=== PATIENT | female | born 1975 | race Caucasian/White ===

== ENCOUNTER → 2020-01-20 | Outpatient (REF) | payer OTHER | LOC: M SFHCWAGY 17:28 | PROVIDERS: ATTEND Advanced Practice Midwife | DX: Z12.4 Encounter for screening for malignant neoplasm of cervix (principal); Z01.419 Encounter for gynecological examination (general) (routine) without abnormal findings ==

== ENCOUNTER 2020-06-20 18:58 | Emergency (ER) | payer OTHER ==
[~2020-06-20] VITALS: Ht 170.2 cm; Wt 113.6 kg
[2020-06-20] MEDS ORDERED: LISI20TA35 PO ×2 (19:23→21:04)
[2020-06-20] MEDS ORDERED: TRAZ-252 PO (19:23)
[2020-06-20] MEDS ORDERED: OMEP-218 PO ×2 (19:23→21:04)
[2020-06-20] MEDS ORDERED: VITA50005 PO (19:23)
[2020-06-20] MEDS ORDERED: FERR325T18 PO (19:23)
[2020-06-20] MEDS ORDERED: DEBL1TAB PO (19:23)
[2020-06-20] MEDS ORDERED: GI COCKTAIL 50ML BTL(HYOSCYAMINE/MAALOX/LIDOCAINE VISCOUS)(1:3:1) PO ONE (19:30)
[2020-06-20] MEDS ORDERED: lisinopriL 20 MG TAB PO ONE (19:30)
[2020-06-20] MEDS ORDERED: hydroCHLOROthiazide 12.5 MG CAPSULE PO ONE (19:30)
[2020-06-20 19:34] VITALS: BP 189/109
[2020-06-20 19:52] LABS: BASO % 0.2 % (0.0-1.0); EOS % 0.1 % (0.0-3.0); HEMATOCRIT 30.9 % (36.0-47.0); HEMOGLOBIN 8.7 g/dl (12.0-15.5); LYMPH # 1.2 10^3/uL (1.5-5.0); LYMPH % 12.8 % (24.0-44.0); MEAN CORPUSCULAR HEMOGLOBIN 19.4 pg (27.0-33.0); MEAN CORPUSCULAR HGB CONC 28.2 g/dl (32.0-36.5); MEAN CORPUSCULAR VOLUME 68.8 fl (80.0-96.0); MONO # 0.8 10^3/uL (0.0-0.8); MONO % 9.1 % (0.0-5.0); NEUTROPHILS % 77.6 % (36.0-66.0); PLATELET COUNT, AUTOMATED 400 10^3/uL (150-450); RED BLOOD COUNT 4.49 10^6/uL (4.00-5.40)
[2020-06-20 20:27] LABS: ALBUMIN 3.7 GM/DL (3.2-5.2); ALT/SGPT 16 U/L (12-78); BILIRUBIN,DIRECT 0.2 MG/DL (0.0-0.2); BILIRUBIN,TOTAL 0.5 MG/DL (0.2-1.0); BLOOD UREA NITROGEN 10 MG/DL (7-18); CALCIUM LEVEL 9.3 MG/DL (8.5-10.1); CARBON DIOXIDE LEVEL 27 MEQ/L (21-32); CHLORIDE LEVEL 102 MEQ/L (98-107); CK-MB VALUE MASS < 1.0 NG/ML (<3.6); CPK CREATINE PHOSPHOKINASE 53 U/L (26-192); CREATININE FOR GFR 0.71 MG/DL (0.55-1.30); GLOMERULAR FILTRATION RATE > 60.0 (>58); GLUCOSE, FASTING 107 MG/DL (70-100); LIPASE 36 U/L (73-393); MB/CK RELATIVE INDEX 1.89 (< OR =4); NT-PRO BNP 714 PG/ML (<125); POTASSIUM SERUM 3.7 MEQ/L (3.5-5.1); SODIUM LEVEL 137 MEQ/L (136-145); TOTAL PROTEIN 7.1 GM/DL (6.4-8.2); TROPONIN I < 0.02 NG/ML (< 0.10)
--- NOTE | 2020-06-20 20:53 | REPVR ---
PROCEDURE INFORMATION: Exam: XR Chest, 1 View Exam date and time: 06/20/2020 8:11 PM Age: 44 years old Clinical indication: Pain; Other: Abdomen/chest; Additional info: Chest pain TECHNIQUE: Imaging protocol: XR of the chest Views: 1 view. COMPARISON: No relevant prior studies available. FINDINGS: Tubes, catheters and devices: External monitoring devices are present. Lungs: Unremarkable. No consolidation. Pleural space: Unremarkable. No pleural effusion. No pneumothorax. Heart/Mediastinum: Unremarkable. No cardiomegaly. Bones/joints: Unremarkable. IMPRESSION: No acute find Electronically signed by: Cora Lal On 06/20/2020 20:53:08 PM
[2020-06-20 20:56] VITALS: BP 170/90
--- NOTE | 2020-06-21 09:46 | ECGEPIP ---
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
== END 2020-06-20 21:29 | disposition home or self-care (01) ==
LOC: M ED 18:58
DX: K21.9 Gastro-esophageal reflux disease without esophagitis (principal); I10 Essential (primary) hypertension; Z79.899 Other long term (current) drug therapy

== ENCOUNTER → 2020-09-06 | Outpatient (CLI) | payer OTHER ==
[~2020-09-06] MED LIST: DEBL1TAB PO; FERR325T18 PO; LISI20TA35 PO; OMEP-218 PO; TRAZ-252 PO; VITA50005 PO
[2020-09-06 11:56] LABS: HEMATOCRIT 35.9 % (36.0-47.0); HEMOGLOBIN 10.4 g/dl (12.0-15.5); MEAN CORPUSCULAR HEMOGLOBIN 21.2 pg (27.0-33.0); MEAN CORPUSCULAR VOLUME 73.3 fl (80.0-96.0); PLATELET COUNT, AUTOMATED 475 10^3/uL (150-450); WHITE BLOOD COUNT 7.2 10^3/uL (4.0-10.0)
[2020-09-06 12:34] LABS: CREATININE, URINE 17.1 MG/DL; MALB URINE SIEMENS 23.7 MG/L; MAU/CREAT RATIO 138.5 MCG/MG (0.0-30.0)
[2020-09-06 12:36] LABS: ALBUMIN 4.1 GM/DL (3.2-5.2); ALT/SGPT 24 U/L (12-78); BILIRUBIN,TOTAL 0.4 MG/DL (0.2-1.0); BLOOD UREA NITROGEN 11 MG/DL (7-18); CALCIUM LEVEL 9.9 MG/DL (8.5-10.1); CARBON DIOXIDE LEVEL 29 MEQ/L (21-32); CHLORIDE LEVEL 99 MEQ/L (98-107); CHOLESTEROL LEVEL 139 MG/DL (<200); CHOLESTEROL RISK RATIO 2.396 (<5); CREATININE FOR GFR 0.75 MG/DL (0.55-1.30); FERRITIN 18 NG/ML (8-252); FREE T4 1.05 NG/DL (0.76-1.46); GLOMERULAR FILTRATION RATE > 60.0 (>58); GLUCOSE, FASTING 93 MG/DL (70-100); HDL CHOLESTEROL 58 MG/DL (>40); LDL CHOLESTEROL 69 MG/DL (<100); NON-HDL-C 81 MG/DL; POTASSIUM SERUM 4.4 MEQ/L (3.5-5.1); SODIUM LEVEL 135 MEQ/L (136-145); TOTAL 25(OH) VITAMIN D 29.4 NG/ML (30.0-100.0); TOTAL PROTEIN 7.6 GM/DL (6.4-8.2); TRIGLYCERIDES LEVEL 62 MG/DL (<150)
== END ==
LOC: M WUC 09:36
PROVIDERS: ATTEND Nurse Practitioner Family
DX: E66.01 Morbid (severe) obesity due to excess calories (principal); I10 Essential (primary) hypertension; E55.9 Vitamin D deficiency, unspecified; D50.9 Iron deficiency anemia, unspecified

== ENCOUNTER 2021-04-02 16:35 | Emergency (ER) | payer OTHER ==
[~2021-04-02] VITALS: Ht 170.2 cm; Wt 119.5 kg
[~2021-04-02 16:35] MED LIST changes: +ERGO500029 PO; -VITA50005 PO
[2021-04-02 16:36] VITALS: BP 120/59
[2021-04-02 18:51] LABS: BASO % 0.3 % (0.0-1.0); EOS # 0.1 10^3/uL (0.0-0.5); EOS % 0.9 % (0.0-3.0); HEMATOCRIT 33.4 % (36.0-47.0); HEMOGLOBIN 10.6 g/dl (12.0-15.5); LYMPH % 25.9 % (24.0-44.0); MEAN CORPUSCULAR HEMOGLOBIN 26.5 pg (27.0-33.0); MEAN CORPUSCULAR HGB CONC 31.7 g/dl (32.0-36.5); MEAN CORPUSCULAR VOLUME 83.5 fl (80.0-96.0); MONO # 0.5 10^3/uL (0.0-0.8); MONO % 6.8 % (2.0-8.0); NEUTROPHILS % 65.8 % (36.0-66.0); PLATELET COUNT, AUTOMATED 354 10^3/uL (150-450); WHITE BLOOD COUNT 7.6 10^3/uL (4.0-10.0)
--- NOTE | 2021-04-02 20:00 | REP ---
INDICATION: pain, swelling COMPARISON: None TECHNIQUE: Mccormack scale and color Doppler evaluation using linear high frequency transducer. FINDINGS: Ultrasound examination of the right upper extremity deep venous structures including visualized jugular, subclavian, axillary, brachial, cephalic and basilic veins demonstrate normal flow, compressibility, velocity and wave patterns without evidence for deep venous thrombosis. IMPRESSION: No evidence for deep venous thrombosis involving right upper extremity. <Electronically signed by Marko Gallego > 04/02/21 195
[2021-04-02] MEDS ORDERED: METH-1164 PO (20:12)
[2021-04-02] MEDS ORDERED: methocarbamoL 500 MG TAB PO ONE (20:20)
== END 2021-04-02 21:05 | disposition home or self-care (01) ==
LOC: M ED 16:35
DX: S46.112A Strain of muscle, fascia and tendon of long head of biceps, left arm, initial encounter (principal); S46.312A Strain of muscle, fascia and tendon of triceps, left arm, initial encounter; S43.402A Unspecified sprain of left shoulder joint, initial encounter; Y92.9 Unspecified place or not applicable; Y93.9 Activity, unspecified; Y99.9 Unspecified external cause status; M54.2 Cervicalgia; X50.0XXA Overexertion from strenuous movement or load, initial encounter

== ENCOUNTER → 2021-04-08 | Outpatient (CLI) | payer OTHER ==
[~2021-04-08] MED LIST changes: +METH-1164 PO
[2021-04-08 15:34] LABS: BASO % 0.4 % (0.0-1.0); EOS % 0.6 % (0.0-3.0); HEMATOCRIT 34.1 % (36.0-47.0); HEMOGLOBIN 10.9 g/dl (12.0-15.5); LYMPH % 28.9 % (24.0-44.0); MEAN CORPUSCULAR HEMOGLOBIN 26.3 pg (27.0-33.0); MEAN CORPUSCULAR VOLUME 82.4 fl (80.0-96.0); MONO # 0.6 10^3/uL (0.0-0.8); MONO % 8.9 % (2.0-8.0); NEUTROPHILS # 4.2 10^3/uL (1.5-8.5); NEUTROPHILS % 60.8 % (36.0-66.0); PLATELET COUNT, AUTOMATED 369 10^3/uL (150-450); RED BLOOD COUNT 4.14 10^6/uL (4.00-5.40); WHITE BLOOD COUNT 6.9 10^3/uL (4.0-10.0)
== END ==
LOC: M PLALAB 14:06
DX: M25.541 Pain in joints of right hand (principal)